=== PATIENT | female | born 1950 | race Caucasian/White ===

== ENCOUNTER 2019-11-21 19:16 | Inpatient (IN) | payer MEDICARE, OTHER ==
[~2019-11-21] VITALS: Ht 152.4 cm; Wt 82.6 kg
--- NOTE | 2019-11-21 17:00 | NUR ---
SEMICONDUCTOR PACKAGES PLATEMAKER OPENING NOTES Received Patient via [place] at this time. Patient in stable condition. A/O x 1. VS stable with no acute distress. Breathing even and unlabored on room air with no respiratory distress. Denies pain. No signs and symptoms of pain. Skin intact. 20g PIV on Right Hand, clean, intact, patent and flushing well. Safety precautions in place. Bed locked and set to lowest position with side rails x 2 up. All needs rendered at this time. Call light within reach. Will continue to monitor. Addendum: 11/22/19 at 1927 by DAYRON MACK RN PLEASE DISREGARD ABOVE DOCUMENTATION, WRONG PATIENT
--- NOTE | 2019-11-21 17:15 | NUR ---
DEMOLITION SPECIALIST NOTES Patient pulled out PIV on Right Hand intact. Reinserted 22g PIV on RAC clean, intact, patent and flushing well with NS infusing at 75ml/hr. Patient tolerated well. Patient in stable condition. Will continue to monitor. Addendum: 11/22/19 at 1929 by DAYRON MACK RN PLEASE DISREGARD ABOVE DOCUMENTATION, WRONG PATIENT
[2019-11-21 20:00] VITALS: BP 134/82
--- NOTE | 2019-11-21 20:40 | NUR ---
MEDICAL RECRUITER CLOSING NOTES Patient asleep and resting in bed. A/O x 1. VS stable with no acute distress. Breathing even and unlabored on room air with no respiratory distress. Denies pain. No signs and symptoms of pain. Skin intact. Telemonitor in place and patent. 22g PIV on RAC clean, intact, patent and flushing well with NS infusing at 75ml/hr. Safety precautions in place. Bed locked and set to lowest position with side rails x 2 up. All needs rendered at this time. Call light within reach. Will endorse plan of care to oncoming shift. Addendum: 11/22/19 at 1929 by DAYRON MACK RN PLEASE DISREGARD ABOVE DOCUMENTATION, WRONG PATIENT
[2019-11-21] MEDS ORDERED: CALC-20 PO (21:21)
[2019-11-21] MEDS ORDERED: ASPI-605 PO (21:21)
[2019-11-21] MEDS ORDERED: MECL-159 PO (21:21)
[2019-11-21] MEDS ORDERED: OMEP20CA15 PO (21:21)
[2019-11-21] MEDS ORDERED: METO25TA6 PO (21:21)
[2019-11-21] MEDS ORDERED: LOSA50TA39 PO (21:21)
[2019-11-21] MEDS ORDERED: ROSU5TAB PO (21:21)
--- NOTE | 2019-11-21 21:23 | NUR ---
TELE1/RN RECEIVED PATIENT AT AROUND 1930 VIA AMBULANCE DIRECT ADMIT FROM [facility], FOR HYPERTENSIVE URGENCY. PATIENT WAS AWAKE, ALERT, ORIENTED, COMFORTABLE, NO DISTRESS NOTED, VS BP 134/82. HR 74, O2 SAT 96% ON RA. ADMISSION DONE PER PROTOCOL, PLAN OF CARE DISCUSSED WITH THE PATIENT AND VERBALIZED UNDERSTANDING AND AGREEMENT, TAUGHT THE USE OF CALL LIGHT AND PLACED IT AT BEDSIDE WITHIN REACH. CALLED [facility], DAVID BARAHONA NP, IS RETAIL LOSS PREVENTION SPECIALIST, LEFT MESSAGE FOR ADMISSION ORDERS. WILL MONITOR PATIENT.
--- NOTE | 2019-11-21 21:37 | NUR ---
TELE/RN SHELBY HERNANDEZ, CALLED BACK, PER DAVID HE IS COMING TO THE FLOOR.
--- NOTE | 2019-11-21 21:56 | NUR ---
TELE1/RN DAVID BARAHONA NP, IS AT BEDSIDE TALKING TO THE PATIENT AT THIS TIME.
--- NOTE | 2019-11-21 22:25 | NUR ---
TELE1/RN TYLENOL 650 MG PO WAS GIVEN ORDERED PER PATIENT'S REQUEST FOR C/O HEADACHE. WILL MONITOR.
[2019-11-21] MEDS ORDERED: MAG HYDROX/AL HYDROX/SIMETH 30 ML UDC PO PRN (22:30)
[2019-11-21] MEDS ORDERED: Z GUARD REMEDY 2 OZ OINT TP PRN (22:30)
[2019-11-21] MEDS ORDERED: ACETAMINOPHEN 325 MG TABLET PO PRN (22:30)
[2019-11-21] MEDS ORDERED: HYDROCODONE/APAP 5/325MG 1 EACH TABLET PO PRN (22:30)
[2019-11-21] MEDS ORDERED: ONDANSETRON HCL/PF 4 MG/2 ML VIAL IVP PRN (22:30)
[2019-11-21] MEDS ORDERED: MECLIZINE HCL 25 MG TABLET PO PRN (22:30)
[2019-11-21] MEDS ORDERED: MAGNESIUM HYDROXIDE 30 ML UDC PO PRN (22:30)
[2019-11-21] MEDS ORDERED: HYDROCODONE/APAP 10/325MG 1 EA TABLET PO PRN (22:30)
[2019-11-21 23:01] LABS: BASOPHILS # (AUTO) 0.1 /CMM (0.0-0.2); BASOPHILS % (AUTO) 0.8 % (0.0-2.0); EOSINOPHILS % (AUTO) 5.7 % (0.0-6.0); HEMATOCRIT 33 % (33-45); HEMOGLOBIN 10.4 g/dL (11.5-14.8); LYMPHOCYTES # (AUTO) 2.7 /CMM (0.8-4.8); LYMPHOCYTES % (AUTO) 25.5 % (20.0-44.0); MEAN CORPUSCULAR HGB CONC 32 g/dl (31.0-36.0); MEAN CORPUSCULAR VOLUME 62 fL (82-100); MONOCYTES # (AUTO) 0.5 /CMM (0.1-1.30); MONOCYTES % (AUTO) 4.9 % (2.0-12.0); NEUTROPHILS # (AUTO) 6.7 /CMM (1.8-8.9); NEUTROPHILS % (AUTO) 63.1 % (43.0-81.0); PLATELET COUNT (AUTO) 427 /CMM (150-450); WHITE BLOOD COUNT (AUTO) 10.7 K/uL (4.3-11.0)
[2019-11-21 23:04] LABS: CALCIUM, SERUM 9.3 mg/dL (8.5-10.1); CREATININE 0.7 mg/dL (0.6-1.3); POTASSIUM 3.9 mmol/L (3.5-5.1)
[2019-11-22] VITALS: BP 134/68
--- NOTE | 2019-11-22 | NUR ---
TELE1/RN PATIENT IS SLEEPING AT THIS TIME, APPEAR COMFORTABLE, BREATHING EVEN AND UNLABORED, CALL LIGHT IN REACH. WILL CONTINUE TO MONITOR.
[2019-11-22 04:50] VITALS: BP 144/54
[2019-11-22 04:55] VITALS: BP 144/54
[2019-11-22 06:18] LABS: BASOPHILS # (AUTO) 0.1 /CMM (0.0-0.2); BASOPHILS % (AUTO) 0.9 % (0.0-2.0); EOSINOPHILS % (AUTO) 5.4 % (0.0-6.0); HEMATOCRIT 33 % (33-45); HEMOGLOBIN 10.2 g/dL (11.5-14.8); LYMPHOCYTES # (AUTO) 2.2 /CMM (0.8-4.8); LYMPHOCYTES % (AUTO) 29.7 % (20.0-44.0); MEAN CORPUSCULAR HGB CONC 31 g/dl (31.0-36.0); MEAN CORPUSCULAR VOLUME 62 fL (82-100); MONOCYTES # (AUTO) 0.5 /CMM (0.1-1.30); NEUTROPHILS # (AUTO) 4.3 /CMM (1.8-8.9); PLATELET COUNT (AUTO) 423 /CMM (150-450); RED BLOOD CELL COUNT(AUTO) 5.28 MIL/uL (4.0-5.2); WHITE BLOOD COUNT (AUTO) 7.5 K/uL (4.3-11.0)
--- NOTE | 2019-11-22 06:20 | NUR ---
TELE1/RN PATIENT IS STILL SLEEPING AT THIS TIME, APPEAR COMFORTABLE, NO SIGNS OF DISTRESS NOTED, CALL LIGHT IN REACH. ALL NEEDS ATTENDED AT THIS TIME, WILL CONTINUE TO MONITOR.
[2019-11-22 06:43] LABS: ALBUMIN 3.3 g/dL (3.4-5.0); BILIRUBIN,TOTAL 0.4 mg/dL (0.2-1.0); CALCIUM, SERUM 9.5 mg/dL (8.5-10.1); CREATININE 0.9 mg/dL (0.6-1.3); MAGNESIUM 1.7 mg/dL (1.8-2.4); PHOSPHORUS 3.8 mg/dL (2.5-4.9); POTASSIUM 3.8 mmol/L (3.5-5.1); TOTAL PROTEIN, SERUM 7.4 g/dL (6.4-8.2)
[2019-11-22 06:53] LABS: THYROID STIMULATING HORMONE 0.194 uIU/mL (0.358-3.74)
--- NOTE | 2019-11-22 07:10 | NUR ---
RN OPENING NOTES REPORT RECEIVED FROM BALANCE CLERK RN. PT IS A&OX4 AND DENIES SOB AND PAIN AT PRESENT TIME. PT IS SITTING IN SEMI [place]STAN[place]A POSITION WATCHING TELEVISION IN BED. BED IS LOCKED AND IN LOWEST POSITION WITH CALL LIGHT IN REACH WILL CONTINUE TO MONITOR.
[2019-11-22 08:00] VITALS: BP 142/76
[2019-11-22] MEDS: PANTOPRAZOLE 40 MG TABLET.DR PO SCH (08:12)
[2019-11-22] MEDS: ASPIRIN EC 81 MG TABLET.DR PO SCH (08:12)
[2019-11-22] MEDS: METOPROLOL TARTRATE 25 MG TABLET PO SCH ×2 (08:13→17:20)
[2019-11-22] MEDS: ATORVASTATIN 10 MG TABLET PO SCH (08:13)
[2019-11-22] MEDS: CALCIUM CARB 600MG /VIT D 1 EACH TABLET PO SCH (08:13)
[2019-11-22] MEDS: LOSARTAN POTASSIUM 50 MG TABLET PO SCH (08:13)
[2019-11-22] MEDS ORDERED: OMEPRAZOLE 20 MG CAPSULE.DR PO SCH (09:00)
[2019-11-22] MEDS: Magnesium 1GM/D5W 100ML PREMIX 100 ML IV SCH ×2 (11:56→12:58)
[2019-11-22] MEDS: CEFTRIAXONE 1 G in IV D5W 50 ML IV SCH (15:41)
[2019-11-22] MEDS: hydrALAZINE HCL 25 MG TABLET PO PRN (15:55)
[2019-11-22 16:00] VITALS: BP 175/67
--- NOTE | 2019-11-22 19:05 | NUR ---
MS RN NOTE RECEIVED PT IN STABLE CONDITION A/O X4, CURRENTLY IN BED WATCHING TV. NO SIGNS OF SOB OR DISTRESS, NO C/O PAIN. IV IN RFA IN PLACE S/L. PER DAYSHIFT, HYDRALAZINE GIVEN CONTINUAL MONITORING OF BP. ALL CURRENT NEEDS ATTENDED TO. BED LOW, LOCKED, UPPER RAILS UP, AND CALL LIGHT WITHIN REACH. WILL CONT. TO MONITOR.
--- NOTE | 2019-11-22 19:27 | NUR ---
RN CLOSING NOTES REPORT GIVEN TO MELTER SUPERVISOR OXYGEN FURNACE RN. PT DENIES ANY PAIN OR SOB AT PRESENT MOMENT. PT IS ABLE TO AMBULATE AND MAKE NEEDS KNOWN. NO SIGNIFICANT CHANGES DURING SHIFT. REPORT GIVEN TO MELTER SUPERVISOR OXYGEN FURNACE RN FOR MERCEDES.
[2019-11-23] MEDS: hydrALAZINE HCL 25 MG TABLET PO PRN ×2 (03:54→10:34)
--- NOTE | 2019-11-23 03:54 | NUR ---
MS RN NOTE 0400 VITALS NOTED WITH 167/82, 77. PRN HYDRALAZINE 25 MG PO GIVEN. WILL CONT. TO MONITOR.
[2019-11-23 04:00] VITALS: BP 162/82
--- NOTE | 2019-11-23 06:03 | NUR ---
MS RN NOTE BLOOD PRESSURE RECHECKED, NOTED TO BE 147/69, 83. WILL CONT. TO MONITOR.
--- NOTE | 2019-11-23 06:04 | NUR ---
MS RN NOTE PT REMAINS IN STABLE CONDITION A/O X4, CURRENTLY RESTING IN BED. NO SIGNS OF SOB OR DISTRESS, NO C/O PAIN. IV IN RFA IN PLACE S/L. ALL CURRENT NEEDS ATTENDED TO. BED LOW, LOCKED, UPPER RAILS UP, AND CALL LIGHT WITHIN REACH. WILL CONT. TO MONITOR AND ENDORSE TO NEXT SHIFT FOR MERCEDES.
--- NOTE | 2019-11-23 07:30 | NUR ---
RECEIVED PT. IN AM,ALERT AND ORIENTED X4.TALKING ABOUT GOING HOME BP ELEVATED.
[2019-11-23 08:00] VITALS: BP 184/88
[2019-11-23] MEDS: METOPROLOL TARTRATE 25 MG TABLET PO SCH ×2 (08:03→17:10)
[2019-11-23] MEDS: ASPIRIN EC 81 MG TABLET.DR PO SCH (08:03)
[2019-11-23] MEDS: CALCIUM CARB 600MG /VIT D 1 EACH TABLET PO SCH (08:03)
[2019-11-23] MEDS: PANTOPRAZOLE 40 MG TABLET.DR PO SCH (08:03)
[2019-11-23] MEDS: LOSARTAN POTASSIUM 50 MG TABLET PO SCH ×2 (08:04→17:00)
[2019-11-23] MEDS: ATORVASTATIN 10 MG TABLET PO SCH (08:04)
[2019-11-23] MEDS ORDERED: LOSARTAN POTASSIUM 50 MG TABLET PO SCH (08:30)
[2019-11-23] MEDS: HYDROCHLOROTHIAZIDE 25 MG TABLET PO SCH (09:10)
[2019-11-23] MEDS ORDERED: LORAZEPAM INJ 2 MG/ML VIAL IV ONE (11:00)
[2019-11-23] MEDS ORDERED: LORAZEPAM 0.5 MG TABLET PO ONE (12:00)
--- NOTE | 2019-11-23 12:01 | NUR ---
GIVEN ATIVAN FOR NERVES.
--- NOTE | 2019-11-23 14:00 | NUR ---
DIETARY ADVISEMENT GIVEN.PT. INTERESTED.BP CHECKED MULTIPLE TIMES AND DISCHARGE ORDER GIVEN BY Frances ALBRIGHT NP.PT. REQUESTING TO STAY ANOTHER DAY.STATES SHE IS AFRAID TO LEAVE.
[2019-11-23] MEDS ORDERED: LOSARTAN POTASSIUM 50 MG TABLET PO ONE (14:30)
--- NOTE | 2019-11-23 15:00 | NUR ---
HERACLIO RYAN TEXTED AGAIN FOR ADVICE ON DISCHARGE PT. DOES NOT WANT TO LEAVE.
[2019-11-23 16:00] VITALS: BP 158/70
--- NOTE | 2019-11-23 16:03 | NUR ---
PATIENT CHALLENGING DISCHARGE ,PER PT. SHE DONT FEEL SAFE TO GO HOME WITH HER UNSTABLE BP,EXPLAINED PRIMARY MD PUT HER ON BP MEDS,STILL REFUSED TO GO,CM NOTIFIED.
--- NOTE | 2019-11-23 16:08 | NUR ---
GAVE TO PATIENT PHONE NUMBER TO APPEAL [facility] [phone].
--- NOTE | 2019-11-23 17:07 | NUR ---
cozaar not given now as given earlier due to elevated bp.
[2019-11-23] MEDS: CEFTRIAXONE 1 G in IV D5W 50 ML IV SCH (17:09)
--- NOTE | 2019-11-23 18:35 | NUR ---
PT. WITH PAPER TO APPEAL FOR EXTENDED STAY AT HOSPITAL.
--- NOTE | 2019-11-23 19:20 | NUR ---
MS RN OPENING NOTES RECEIVED PATIENT IN BED FROM MORNING SHIFT ALERT AND ORIENTED X 3. VERBALLY RESPONSIVE AND ABLE TO FOLLOW DIRECTIONS. BREATHING REGULAR AND UNLABORED ON ROOM AIR. RIGHT FOREARM G22 IV LINE INTACT AND PATENT, FLUSHING WELL WITH NO BLEEDING OR S/S OF INFECTION/INFILTRATION NOTED. BODY ASSESSMENT DONE, SKIN REMAINED INTACT, CLEAN AND DRY. NO COMPLAINTS OF PAIN/DISCOMFORT REPORTED OF THE TIME. BED LOW AND LOCKED ON SEMI FOWLERS POSITION. CALL LIGHT IN REACH. WILL CONTINUE TO MONITOR.
[2019-11-23 20:00] VITALS: BP 153/76
--- NOTE | 2019-11-23 20:00 | NUR ---
MS RN NOTES COMPLAINED OF FEELING NAUSEOUS, ZOFRAN 4MG GIVEN VIA IV PUSH. NON-PHARMACOLOGICAL INTERVENTIONS PROVIDED. WILL CONTINUE TO MONITOR.
[2019-11-24] VITALS: BP 153/76
--- NOTE | 2019-11-24 06:15 | NUR ---
MS RN CLOSING NOTES PATIENT IN BED ALERT AND ORIENTED X 3. VERBALLY RESPONSIVE AND ABLE TO FOLLOW DIRECTIONS. BREATHING REGULAR AND UNLABORED ON ROOM AIR. RIGHT FOREARM G22 IV LINE INTACT AND FLUSHING WELL. NO COMPLAINTS OF PAIN/DISCOMFORT REPORTED THE WHOLE SHIFT. BED LOW AND LOCKED ON SEMI FOWLERS POSITION. CALL LIGHT IN REACH. WILL ENDORSE TO MORNING SHIFT FOR MERCEDES.
[2019-11-24] MEDS: LOSARTAN POTASSIUM 50 MG TABLET PO SCH (08:30)
[2019-11-24] MEDS: ATORVASTATIN 10 MG TABLET PO SCH (08:30)
[2019-11-24] MEDS: CALCIUM CARB 600MG /VIT D 1 EACH TABLET PO SCH (08:30)
[2019-11-24 08:31] VITALS: BP 144/70
[2019-11-24] MEDS: ASPIRIN EC 81 MG TABLET.DR PO SCH (08:31)
[2019-11-24] MEDS: HYDROCHLOROTHIAZIDE 25 MG TABLET PO SCH (08:31)
[2019-11-24] MEDS: METOPROLOL TARTRATE 25 MG TABLET PO SCH (08:31)
[2019-11-24] MEDS: PANTOPRAZOLE 40 MG TABLET.DR PO SCH (08:31)
[2019-11-24] MEDS ORDERED: ATOR20TA PO (10:16)
[2019-11-24] MEDS ORDERED: AMOX-430 PO (10:18)
--- NOTE | 2019-11-24 11:44 | NUR ---
Patient discharge to home with all belongings, her discharge packet and new medication which was faxed to her pharmacy. Patient accompanied by son who verbalizes understanding that a copy of this was faxed to her pharmacy and she has extra copies for her MD's in the Primary Care setting. This includes her medication reconciliation list. A 22 gauge intravenous site was removed from the right arm. No pain per patient. Site is non-edematous, non-erythematous, and has no drainage. Pressure was applied for 1 and a half minutes and a fresh bandaid afterward. Patient is ambulatory with a steady gait. Given a wheelchair to private auto by [employer] to be transported to her home. Regis Dominguez RN
== END 2019-11-24 11:20 | disposition home or self-care (01) | DRG 872 ==
LOC: TELE1 19:24 → MEDSG1 11-22 11:12
PROVIDERS: ADMIT Nurse Practitioner Acute Care; ATTEND Nurse Practitioner Acute Care
DX: A41.9 Sepsis, unspecified organism (principal); N39.0 Urinary tract infection, site not specified; E78.5 Hyperlipidemia, unspecified; I10 Essential (primary) hypertension; I16.0 Hypertensive urgency; K21.9 Gastro-esophageal reflux disease without esophagitis; G47.33 Obstructive sleep apnea (adult) (pediatric); Z95.2 Presence of prosthetic heart valve; D50.9 Iron deficiency anemia, unspecified; Z68.35 Body mass index [BMI] 35.0-35.9, adult; R51 Headache; D72.829 Elevated white blood cell count, unspecified; D47.3 Essential (hemorrhagic) thrombocythemia; E66.9 Obesity, unspecified; I25.10 Atherosclerotic heart disease of native coronary artery without angina pectoris; Z95.1 Presence of aortocoronary bypass graft
CPT/HCPCS: 36415; 80048-TC; 80053-TC; 80061-TC; 82728-TC; 83540-TC; 83605-TC; 83735-TC; 84100-TC; 84436-TC; 84443-TC; 85025-TC; 87040-TC; 87081-TC; 87086-TC; 87186-TC; 97116-TC; 97530-TC; G0378; J0696; J2405; J3475; J7040; J7060